=== PATIENT | female | born 1980 | race Caucasian/White ===

== ENCOUNTER → 2016-11-12 | Outpatient (CLI) | payer BC ==
[2016-11-12 19:58] LABS: FREE T4 0.86 NG/DL (0.76-1.46); PROLACTIN 27.8 NG/ML
== END ==
LOC: M WUC 16:11
PROVIDERS: ATTEND Nurse Practitioner Women's Health
DX: N92.1 Excessive and frequent menstruation with irregular cycle (principal)

== ENCOUNTER 2017-01-30 17:20 | Emergency (ER) | payer BC ==
[~2017-01-30] VITALS: Ht 175.3 cm; Wt 81.3 kg
[2017-01-30] MEDS ORDERED: IBUP-1114 PO (17:55)
[2017-01-30] MEDS ORDERED: ORTH1TAB4 PO (17:55)
--- NOTE | 2017-01-30 18:30 | REPUSA ---
Clinical history: Pain, swelling. Findings: The right common femoral, superficial femoral, popliteal, and other deep venous structures compress normally and demonstrate normal color Doppler flow. Normal venous waveforms with augmentatio n are seen. Impression: No evidence of deep vein thrombosis in the right femoral popliteal venous system.
[2017-01-30] MEDS ORDERED: NAPR500T PO (19:55)
[2017-01-30 20:03] VITALS: BP 133/90
== END 2017-01-30 20:19 | disposition home or self-care (01) ==
LOC: M ED 17:20
DX: I80.291 Phlebitis and thrombophlebitis of other deep vessels of right lower extremity (principal); E66.9 Obesity, unspecified; Z79.3 Long term (current) use of hormonal contraceptives; Z87.891 Personal history of nicotine dependence

== ENCOUNTER → 2020-08-02 | Outpatient (CLI) | payer SELFPAY ==
[~2020-08-02] MED LIST: IBUP-1114 PO; NAPR-837 PO; ORTH1TAB10 PO
== END ==
LOC: M LABSMTC 13:07
PROVIDERS: ATTEND Pediatrics
DX: Z11.52 Encounter for screening for COVID-19 (principal)

== ENCOUNTER → 2022-06-11 | Outpatient (REF) | payer BC | LOC: M PLALAB 14:26 | PROVIDERS: ATTEND Nurse Practitioner Family | DX: Z12.4 Encounter for screening for malignant neoplasm of cervix (principal) | CPT/HCPCS: 87624; G0123 ==

== ENCOUNTER → 2022-10-08 | Outpatient (REF) | payer BC | LOC: M SFHCWAGY 09:23 | PROVIDERS: ATTEND Nurse Practitioner Family | DX: Z12.4 Encounter for screening for malignant neoplasm of cervix (principal); R87.615 Unsatisfactory cytologic smear of cervix ==

== ENCOUNTER → 2023-10-19 | Outpatient (REF) | payer OTHER | LOC: M SFHCWAGY 14:36 | PROVIDERS: ATTEND Nurse Practitioner Family | DX: Z12.4 Encounter for screening for malignant neoplasm of cervix (principal) ==

== ENCOUNTER → 2023-12-02 | Outpatient (REF) | payer OTHER | LOC: M SFHCWAGY 15:13 | PROVIDERS: ATTEND Advanced Practice Midwife | DX: R87.615 Unsatisfactory cytologic smear of cervix (principal) ==

== ENCOUNTER → 2024-10-20 | Outpatient (REF) | payer OTHER ==
[2024-10-22 19:47] LABS: HPV APTIMA Not Detected (Not Detected)
== END ==
LOC: M SFHCWAGY 17:59
PROVIDERS: ATTEND Obstetrics & Gynecology
DX: Z12.4 Encounter for screening for malignant neoplasm of cervix (principal); R87.610 Atypical squamous cells of undetermined significance on cytologic smear of cervix (ASC-US)
CPT/HCPCS: 87624; G0123

== ENCOUNTER 2024-12-27 07:42 | Outpatient (RCR) | payer OTHER | END 2025-01-05 | LOC: M PT 07:42 | PROVIDERS: ATTEND Obstetrics & Gynecology | DX: N94.10 Unspecified dyspareunia (principal) ==